=== PATIENT | female | born 1930 | race Hispanic/Latino ===

== ENCOUNTER 2017-11-05 13:23 | Emergency (ER) | payer MEDICARE, OTHER ==
[~2017-11-05] VITALS: Ht 157.5 cm; Wt 66.2 kg
[~2017-11-05 13:23] MED LIST: GALANTAMINE HBR4 MG PO; HYDROCHLOROTHIA25 MG; SEROQUEL25 MG PO; ZEBETA10 MG PO
--- OUTSIDE RECORDS SUMMARY | 2017-11-05 13:25 | XMS REPORT | Summary of Care ---
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, 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 Endometrial carcinoma (182.0, C54.1) Status: Active Medications Name Dates Details Galantamine Hydrobromide TABS Active [place] LIQD * Refills: 0 Active Isopropyl Alcohol GEL * Refills: 0 Active Allergies and Adverse Reactions Name Dates Details No Known Drug Allergies (Allergy) Status: Active Past Medical History Name Dates Details History of hypertension (V12.59, Z86.79) Status: Resolved History of malignant neoplasm of breast (V10.3, Z85.3) Status: Resolved Procedures Procedure Dates Details Occupational Therapy Date: 05-Aug-2017 [[facility]] CBC (INCLUDES DIFF/PLT) Date: 26-Aug-2017 [QL] CMP W/EGFR Date: 26-Aug-2017 [QL] CA 125 Date: 26-Aug-2017 History of Breast Surgery Mastectomy Completed History of Gallbladder Surgery Completed History of Appendectomy Completed History of cholecystectomy Completed Immunization Name Dates Details Immunizations not documented Family History Name Dates Details Family history of colon cancer (V16.0, Z80.0) Comments: Family History Status: Active Family history of malignant neoplasm of prostate (V16.42, Z80.42) Comments: Family History Status: Active Name Dates Details Family history of Alzheimer's disease (V17.2, Z82.0) Status: Active Name Dates Details Family history of malignant neoplasm (V16.9, Z80.9) Status: Active Family history of Alzheimer's disease (V17.2, Z82.0) Status: Active Name Dates Details Family history of malignant neoplasm (V16.9, Z80.9) Status: Active Social History Name Dates Details - Status: Name Dates Details Never smoker Vital Signs Date Test Result Details 26-Aug-20179:45 BP Systolic 146 mm[Hg] Status: Comments: Location: LUE; Position: Sitting BP Diastolic 88 mm[Hg] Status: Comments: Location: LUE; Position: Sitting Height 61 in Status: Weight 146 lb Status: Body Mass Index Calculated 27.59 kg/m2 Status: Body Surface Area Calculated 1.65 m2 Status: Temperature 97.5 f Status: Heart Rate 80 /min Status: Results Date Description Value Details Results not documented Plan of Care Name Dates Details Planned Observations Planned Goals not documented Planned Encounters Hospice Referral Appointment; RAFAEL MELVIN M.D. On: 02-Sep-2017 10:20 Appointment; FREDDIE MCGARRY D.O. On: 04-Sep-2017 15:00 Interventions Provided Labs/Procedures/Imaging* [QLH] CA 125; To Be Done: 26 Aug 2017 * [QLH] CBC (INCLUDES DIFF/PLT); To Be Done: 26 Aug 2017 * [QLH] CMP W/EGFR; To Be Done: 26 Aug 2017 Instructions* Patient Specific Education Given; Done: 26 Aug 2017 Instructions Name Dates Details Instructions not documented Encounters Appointment; CIRILO DAVIDSON M.D. Encounter Diagnosis: Problem not documented On: 05-Dec-2016 14:00 Appointment; CIRILO DAVIDSON M.D. Encounter Diagnosis: Problem not documented On: 26-Dec-2016 13:45 Appointment; SAWYER GARCIA P.A. Encounter Diagnosis: Problem not documented On: 05-Aug-2017 13:00 Appointment; RAFAEL MELVIN M.D. Encounter Diagnosis: Problem not documented On: 26-Aug-2017 9:30
--- OUTSIDE RECORDS SUMMARY | 2017-11-05 13:25 | XMS REPORT ---
Author [facility] Address Unknown Phone Unavailable Care Team Providers Care Bankruptcy Judge Name Role Phone AUDI HOUSTON Unavailable Unavailable Problems This patient has no known problems. Allergies, Adverse Reactions, Alerts This patient has no known allergies or adverse reactions. Medications This patient has no known medications. Results Test Description Test Time Test Comments Text Results Atomic Results Result Comments HAND 3+ VIEWS LEFT [place] [address] Patient Name: KOMAL MARTINEZ MR #: [id number] : 1930 Age/Sex: 87/F Req #: [id number] [facility] Physician: Ordered by: AUDI HOUSTON MD Report #: [id number] Location: ER Room/Bed: Procedure: [id number] DX/HAND 3+ VIEWS LEFT Exam Date: 07/20/17 Exam Time: 1842 REPORT STATUS: Signed LEFT HAND X-RAY - 3 VIEWS HISTORY: COMPARISON: None available. FINDINGS: Bones: No acute displaced fracture. Bone demineralization. Osseous alignment is within normal limits. Joints: Degenerative changes of the radiocarpal and carpal bones. Moderate joint space narrowing of the mid and distal interphalangeal joints. Soft tissues: Soft tissue swelling within the radial aspect of the proximal hand. IMPRESSION: Soft tissue swelling without acute bony abnormalities. Signed by: Dr. Saskia Richards M.D. on 07/20/2017 6:50 PM Dictated By: SASKIA RICHARDS MD 49 COPY TO: AUDI HOUSTON MD
[2017-11-05] MEDS ORDERED: TRAMADOL HCL 50 MG TAB PO ONE (14:00)
--- NOTE | 2017-11-05 14:07 | Diagnostic Imaging Report ---
Examination: CT BRAIN WITHOUT CONTRAST History:Head injury. Comparison studies:None Technique: Axial images were obtained from the skull base to the vertex. Coronal and sagittal images reconstructed from the axial data. Intravenous contrast: None Findings: Scalp: No abnormalities. Bones: No fractures, blastic or lytic lesions. Brain sulci: Moderate volume loss for age. Ventricles: No hydrocephalus. Extra-axial space: No abnormalities. Parenchyma: There are subtle patchy areas of hypoattenuation in the periventricular and subcortical white matter, nonspecific. No masses, hemorrhage, or acute or chronic cortical based vascular insults. Sellar/suprasellar region: No abnormalities. Craniocervical junction: Patent foramen magnum. No Chiari one malformation. Incidental findings: Atherosclerotic calcification of the cavernous and supraclinoid internal carotid and V4 segments of the bilateral vertebral arteries. Impression: 1. No acute intracranial abnormalities. 2. Moderate volume loss. 3. Mild chronic microvascular ischemic change. Signed by: Dr. Maude Mathews M.D. on 11/05/2017 2:04 PM
--- NOTE | 2017-11-05 14:19 | Diagnostic Imaging Report ---
Examination: CT CERVICAL SPINE WITHOUT CONTRAST HISTORY:Neck pain. Fall. COMPARISON:None. TECHNIQUE: Multidetector helical axial images were obtained without contrast from the foramen magnum to T1. Coronal and sagittal reformatted images were done. Bone and soft tissue windows were evaluated. FINDINGS: Alignment:Normal alignment and lordosis. Vertebrae: Normal height and density. No acute fracture, infection or neoplasm. 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 Diffuse osteopenia. Disc space heights: Moderately narrowed at C3-C4, C5-C6 and C6-C7. Caliber of spinal canal: Developmentally normal. Posterior fossa and craniocervical junction: Foramen magnum patent. No Chiari 1 malformation. Soft tissues: No abnormality. Degenerative changes: Diffuse disc osteophyte complex at C5-C6 without canal or foraminal stenosis. The remaining cervical levels demonstrate no disc bulge/ herniation or foraminal or canal stenosis. IMPRESSION: No acute abnormalities. Signed by: Dr. Maude Mathews M.D. on 11/05/2017 2:15 PM
--- NOTE | 2017-11-05 14:26 | Diagnostic Imaging Report ---
PROCEDURE:X-RAY LEFT SHOULDER, COMPLETE COMPARISON:None. INDICATIONS:LEFT SHOULDER PAIN FROM FALL FINDINGS: Generalized osteopenia, which limits evaluation of the bony structures. No acute displaced fracture or dislocation. No lytic or blastic lesion. Mild degenerative changes in the acromio clavicular and glenohumeral joints. Soft tissues are unremarkable. Questionable 4-5 mm nodular density in the left upper lung, which is only seen in 2 of the 3 images, and likely represents summation of vessels shadows CONCLUSION: Generalized osteopenia, which limits evaluation of the bony structures. No acute displaced fracture or dislocation. Correlate clinically for need for further imaging. Ranulfo La M.D. Dictated by: Ranulfo La M.D. on 11/05/2017 at 14:36 Electronically approved by: Ranulfo La M.D. on 11/05/2017 at 14:36
[2017-11-05] MEDS ORDERED: HYDROCODONE/APAP 5MG-325MG TAB PO ONE (15:00)
[2017-11-05 15:06] VITALS: BP 108/65
== END 2017-11-05 15:16 | disposition home or self-care (01) ==
LOC: ER 13:23
DX: S09.8XXA Other specified injuries of head, initial encounter (principal); S40.012A Contusion of left shoulder, initial encounter; G30.9 Alzheimer's disease, unspecified; F02.80 Dementia in other diseases classified elsewhere, unspecified severity, without behavioral disturbance, psychotic disturbance, mood disturbance, and anxiety; W06.XXXA Fall from bed, initial encounter
CPT/HCPCS: 70450; 72125; 99284